=== PATIENT | female | born 1980 | race Caucasian/White ===

== ENCOUNTER 2018-12-04 19:43 | Emergency (ER) | payer OTHER ==
[~2018-12-04] VITALS: Ht 175.3 cm; Wt 112.4 kg
[2018-12-04 20:56] LABS: BASOPHILS # (AUTO) 0.03 x10^3/uL (0-0.1); BASOPHILS % (AUTO) 0 % (0-1); EOSINOPHILS # (AUTO) 0.12 x10^3/uL (0-0.4); EOSINOPHILS % (AUTO) 2 % (1-7); LYMPHOCYTES # (AUTO) 2.28 x10^3/uL (1-3.4); LYMPHOCYTES % (AUTO) 29 % (22-44); MD NO; MEAN CORPUSCULAR HEMOGLOBIN 31.9 pg (27.0-34.8); MEAN CORPUSCULAR HGB CONC 33.6 g/dL (32.4-35.8); MEAN CORPUSCULAR VOLUME 94.8 fL (80-100); MEAN PLATELET VOLUME 7.3 fL (7.4-10.4); MONOCYTES % (AUTO) 8 % (2-9); NEUTROPHILS # (AUTO) 4.74 x10^3/uL (1.8-6.8); NEUTROPHILS % (AUTO) 61 % (42-75); PLATELET COUNT 250 x10^3/uL (130-400); RED BLOOD COUNT 4.24 x10^6/uL (3.82-5.3); RED CELL DISTRIBUTION WIDTH 12.7 % (9.6-15.2)
[2018-12-04 21:02] LABS: ALANINE AMINOTRANSFERASE 30 U/L (12-78); ALBUMIN 3.9 g/dL (3.4-5.0); ANION GAP 6 mmol/L (5-15); CALCIUM 8.7 mg/dL (8.5-10.1); CHLORIDE 107 mmol/L (98-107)
[2018-12-04 21:03] LABS: MICROSCOPIC AUTO
[2018-12-04 21:05] LABS: CULTURE INDICATED? NO
[2018-12-04 21:07] LABS: ALKALINE PHOSPHATASE 72 U/L (45-117); BILIRUBIN,TOTAL 0.3 mg/dL (0.2-1.0); TOTAL PROTEIN 7.3 g/dL (6.4-8.2)
--- NOTE | 2018-12-04 23:35 | NUR ---
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 PT STEADY UPON AMBULATION.
[2018-12-04] MEDS ORDERED: ONDANSETRON 2MG/ML, 2ML ONE (23:56)
[2018-12-04] MEDS ORDERED: MORPHINE SULFATE 4 MG/ML, 1ML ONE (23:56)
[2018-12-05] MEDS ORDERED: ONDANSETRON 2MG/ML, 2ML IVPush ONE
[2018-12-05] MEDS ORDERED: MORPHINE SULFATE 4 MG/ML, 1ML IVPush PRN
--- NOTE | 2018-12-05 00:02 | NUR ---
PT HERE FOR EPIGASTRIC PAIN AND GASSY FEELING THAT STARTED SUNDAY. PT SAYS PAIN IS SIMILAR TO GALLBLADDER PAIN BUT GALLBLADDER HAS BEEN REMOVED. PIV PLACE. PT MEDICATED AND PT TO CT.
[2018-12-05 01:05] VITALS: BP 131/77
--- NOTE | 2018-12-05 01:14 | NUR ---
Patient given discharge instructions and they have confirmed that they understand the instructions. Patient ambulatory with steady gait.
== END 2018-12-05 01:18 | disposition home or self-care (01) ==
LOC: ED 12-05 01:10
DX: K52.9 Noninfective gastroenteritis and colitis, unspecified (principal); I10 Essential (primary) hypertension
CPT/HCPCS: 36415; 74021; 74177; 80053; 81001; 83690; 84703; 85025; 96374; 96375; 99284; J2405

== ENCOUNTER → 2019-02-26 | Outpatient (CLI) | payer OTHER | END | disposition home or self-care (01) | LOC: CFH 12:23 | PROVIDERS: ATTEND Obstetrics & Gynecology | DX: Z12.31 Encounter for screening mammogram for malignant neoplasm of breast (principal) | CPT/HCPCS: 77063; 77067 ==

== ENCOUNTER → 2020-07-26 | Outpatient (CLI) | payer BC, OTHER | END | disposition home or self-care (01) | LOC: CFH 08:33 | PROVIDERS: ATTEND Obstetrics & Gynecology | DX: Z12.31 Encounter for screening mammogram for malignant neoplasm of breast (principal) | CPT/HCPCS: 77063; 77067 ==

== ENCOUNTER → 2020-08-05 | Outpatient (CLI) | payer BC | END | disposition home or self-care (01) | LOC: STAR 12:02 | PROVIDERS: ATTEND Obstetrics & Gynecology | DX: Z20.828 Contact with and (suspected) exposure to other viral communicable diseases (principal) | CPT/HCPCS: 87635 ==

== ENCOUNTER 2020-08-10 09:49 | Day surgery (SDC) | payer BC, OTHER ==
[2020-08-10] MEDS ORDERED: PHEN15CA2 PO (10:21)
[2020-08-10] MEDS ORDERED: AMLO-150 PO (10:21)
[2020-08-10] MEDS ORDERED: TOPI25TA8 PO (10:21)
[2020-08-10 10:25] VITALS: BP 133/81
[2020-08-10] MEDS ORDERED: EPINEPHRINE 1 MG/ML, 1ML ONE (10:29)
[2020-08-10] MEDS ORDERED: SILVER NITRATE STICK TP ONE (10:29)
[2020-08-10] MEDS ORDERED: BUPIVACAINE/PF 0.25% ONE (10:29)
[2020-08-10] MEDS ORDERED: CHLORHEXIDINE 15 ML UDC MM ONE (10:30)
[2020-08-10] MEDS ORDERED: LACTATED RINGERS 1,000 ML IV SCH (10:30)
[2020-08-10 10:46] LABS: HCG UR SG 1.022 (1.003-1.030)
[2020-08-10] MEDS ORDERED: PLEASE ENTER WEIGHT MC SCH (11:00)
[2020-08-10] MEDS ORDERED: FENTANYL PF 100 MCG/2ML ONE ×3 (11:46→14:21)
[2020-08-10] MEDS ORDERED: MIDAZOLAM 1 MG/ML, 2ML ONE (11:46)
[2020-08-10 11:58] LABS: ALANINE AMINOTRANSFERASE 18 U/L (12-78); ALBUMIN 3.9 g/dL (3.4-5.0); CALCIUM 8.5 mg/dL (8.5-10.1); CHLORIDE 107 mmol/L (98-107); CREATININE 0.64 mg/dL (0.55-1.02)
[2020-08-10 12:01] LABS: ALKALINE PHOSPHATASE 70 U/L (45-117); BILIRUBIN,TOTAL 0.4 mg/dL (0.2-1.0); TOTAL PROTEIN 7.6 g/dL (6.4-8.2)
[2020-08-10 12:03] LABS: BASOPHILS % (AUTO) 1 % (0-1); EOSINOPHILS % (AUTO) 2 % (1-7); LYMPHOCYTES % (AUTO) 41 % (22-44); MEAN CORPUSCULAR HGB CONC 33.8 g/dL (32.4-35.8); MEAN PLATELET VOLUME 7.6 fL (7.4-10.4); MONOCYTES % (AUTO) 5 % (2-9); NEUTROPHILS % (AUTO) 51 % (42-75); PLATELET COUNT 296 x10^3/uL (130-400); RED BLOOD COUNT 4.07 x10^6/uL (3.82-5.3); RED CELL DISTRIBUTION WIDTH 13.8 % (9.6-15.2)
[2020-08-10 12:14] LABS: ANION GAP 5 mmol/L (5-15)
[2020-08-10 12:20] LABS: MD NO
[2020-08-10] MEDS ORDERED: PROPOFOL 10 MG/ML, 20ML ONE (13:47)
[2020-08-10] MEDS ORDERED: ROCURONIUM 10MG/ML,5ML ONE (13:47)
[2020-08-10] MEDS ORDERED: NEOSTIGMINE 1 MG/ML, 10ML ONE (13:47)
[2020-08-10] MEDS ORDERED: SUGAMMADEX 200 MG/2 ML IVPush ONE (13:47)
[2020-08-10] MEDS ORDERED: DEXAMETHASONE 4 MG/ML, 1ML ONE (13:47)
[2020-08-10] MEDS ORDERED: ONDANSETRON 2MG/ML, 2ML ONE (13:47)
[2020-08-10] MEDS ORDERED: SUCCINYLCHOLINE 20 MG/ML, 10ML ONE (13:47)
[2020-08-10] MEDS ORDERED: GLYCOPYRROLATE 0.2MG/1ML, 5ML ONE (13:47)
[2020-08-10] MEDS ORDERED: CEFAZOLIN 1,000 MG ONE (13:47)
[2020-08-10] MEDS ORDERED: ACETAMINOPHEN 325 MG TABLET PO PRN (14:00)
[2020-08-10] MEDS ORDERED: DIAZEPAM 5 MG/ML, 2ML IVPush PRN (14:00)
[2020-08-10] MEDS ORDERED: MEPERIDINE/PF 25MG/0.5ML IVPush PRN (14:00)
[2020-08-10] MEDS ORDERED: KETOROLAC 30 MG/1 ML IV PRN (14:00)
[2020-08-10] MEDS ORDERED: OXYcodone 5 MG/5 ML ORAL.SOL UDC PO PRN (14:00)
[2020-08-10] MEDS ORDERED: LABETALOL 5MG/ML, 20ML IV PRN (14:00)
[2020-08-10] MEDS ORDERED: hydrALAzine 20 MG/ML, 1ML IV PRN (14:00)
[2020-08-10] MEDS ORDERED: ALBUTEROL SULFATE 2.5 MG/3 ML NPPB PRN (14:00)
[2020-08-10] MEDS ORDERED: HYDROmorphone 2 MG/ML, 1ML IVPush PRN (14:00)
[2020-08-10] MEDS ORDERED: PROMETHAZINE 25 MG/ML, 1ML IV PRN (14:00)
[2020-08-10] MEDS: FENTANYL PF 100 MCG/2ML IV PRN ×4 (14:12→14:45)
[2020-08-10] MEDS ORDERED: ACETAMINOPHEN 650 MG/20.3 ML UDC ONE (14:21)
[2020-08-10] MEDS ORDERED: OXYcodone 5 MG/5 ML ORAL.SOL UDC ONE (14:21)
== END 2020-08-10 16:20 | disposition home or self-care (01) ==
LOC: OUT 09:49
PROVIDERS: ATTEND Obstetrics & Gynecology
DX: Z30.2 Encounter for sterilization (principal); N83.01 Follicular cyst of right ovary; I10 Essential (primary) hypertension; E11.9 Type 2 diabetes mellitus without complications; Z79.899 Other long term (current) drug therapy; Z87.442 Personal history of urinary calculi; Z88.6 Allergy status to analgesic agent; Z90.49 Acquired absence of other specified parts of digestive tract; Z98.84 Bariatric surgery status
CPT/HCPCS: 36415; 58661; 80053; 81025; 85025; 86850; 86900; 88302; 88305; 93005; J0171; J0690; J1100; J2250; J2405; J2704; J3010; J7120; J2710; J0330